=== PATIENT | female | born 1980 | race Caucasian/White ===

== ENCOUNTER 2022-04-03 11:27 | Emergency (ER) | payer MEDICAID ==
[~2022-04-03] VITALS: Ht 152.4 cm; Wt 64.0 kg
[2022-04-03 11:37] VITALS: BP 104/63
[2022-04-03] MEDS ORDERED: SODIUM CHLORIDE 0.9% 1,000 ML IV ONE (12:00)
[2022-04-03] MEDS ORDERED: ACETAMINOPHEN 325MG TABLET PO ONE (12:00)
[2022-04-03 12:16] LABS: BASOPHILS % 0.3 % (0.0-2.0); EOSINOPHILS % 0.8 % (0.0-5.0); HEMATOCRIT. 35.7 % (36.0-48.0); HEMOGLOBIN. 11.9 g/dL (12.0-16.0); LYMPHOCYTES % 13.4 % (20.0-50.0); MEAN CORPUSCULAR HEMOGLOBIN 25.7 pg (28.0-32.0); MEAN CORPUSCULAR VOLUME 77.2 fL (81.0-99.0); MEAN PLATELET VOLUME 8.6 fl (7.4-10.4); MONOCYTES % 8.3 % (2.0-8.0); NEUTROPHILS % 77.2 % (40.0-76.0); PLATELET 239 x1000/uL (130-400); RED BLOOD CELL COUNT 4.63 mill/uL (4.2-5.4); RED CELL DISTRIBUTION WIDTH 14.7 % (11.6-14.6)
[2022-04-03 12:24] LABS: CHLORIDE 105 mEq/L (98-107)
[2022-04-03 12:43] LABS: CLARITY URINE TURBID (CLEAR); COLOR URINE YELLOW (YELLOW); KETONES URINE NEGATIVE (NEGATIVE); LEUKOCYTE ESTERASE URINE 1+ (NEGATIVE); NITRITE URINE NEGATIVE (NEGATIVE); OCCULT BLOOD URINE 3+ (NEGATIVE); PH URINE 8.5 (4.5-8.0); PROTEIN URINE TRACE (NEGATIVE); SPECIFIC GRAVITY URINE 1.018 (1.005-1.030)
[2022-04-03 12:48] LABS: B-HCG QUANTITATIVE 21393 mIU/mL (<3)
[2022-04-03] MEDS ORDERED: NITR-87 MT (13:51)
== END 2022-04-03 14:23 | disposition home or self-care (01) ==
LOC: ER 11:47
DX: O20.0 Threatened abortion (principal); Z3A.16 16 weeks gestation of pregnancy
CPT/HCPCS: 36415; 76805; 80053; 81003; 84702; 85025; 86850; 86900; 86901; 96360; 99284; J7030

== ENCOUNTER 2022-07-26 00:47 | Inpatient (IN) | payer MEDICAID ==
[~2022-07-26] VITALS: Ht 152.4 cm; Wt 70.3 kg
[~2022-07-26 00:47] MED LIST: NITR-87 MT
[2022-07-26] MEDS ORDERED: MISOPROSTOL 100MCG TABLET VG SCH (01:15)
[2022-07-26] MEDS ORDERED: NALOXONE HCL 0.4 MG/ML 1ML VIAL IM PRN (01:15)
[2022-07-26] MEDS ORDERED: LIDOCAINE HCL 1% 10 MG/ML 10ML VIAL IJ SCH (01:15)
[2022-07-26] MEDS ORDERED: RHO(D) IMMUNE GLOBULIN 300 MCG/SYR IM ONE (01:15)
[2022-07-26] MEDS ORDERED: CARBOPROST TROMETHAMINE 250 MCG/ML AMPUL IM PRN (01:15)
[2022-07-26] MEDS ORDERED: OXYTOCIN 30 UNITS/500ML NS PMX 500 ML IV SCH ×2 (01:15→03:00)
[2022-07-26] MEDS ORDERED: METHYLERGONOVINE MALEATE 0.2 MG/ML IM PRN (01:15)
[2022-07-26] MEDS: LACTATED RINGERS 1,000 ML IV SCH ×2 (01:39→02:00)
[2022-07-26 01:51] LABS: BASOPHILS % 0.8 % (0.0-2.0); EOSINOPHILS % 1.7 % (0.0-5.0); HEMATOCRIT. 31.9 % (36.0-48.0); HEMOGLOBIN. 10.4 g/dL (12.0-16.0); MEAN CORPUSCULAR HEMOGLOBIN 22.8 pg (28.0-32.0); MEAN PLATELET VOLUME 8.6 fl (7.4-10.4); MONOCYTES % 9.8 % (2.0-8.0); NEUTROPHILS % 70.7 % (40.0-76.0); PLATELET 250 x1000/uL (130-400); RED BLOOD CELL COUNT 4.56 mill/uL (4.2-5.4); RED CELL DISTRIBUTION WIDTH 18.7 % (11.6-14.6)
[2022-07-26] MEDS ORDERED: MORPHINE SULFATE/PF 1MG/ML 10ML AMP ONE (01:56)
[2022-07-26] MEDS ORDERED: DEXAMETHASONE 4MG/ML 1ML VIAL ONE (01:57)
[2022-07-26] MEDS ORDERED: ONDANSETRON HCL 4MG/2ML INJ ONE (01:57)
[2022-07-26] MEDS ORDERED: OXYTOCIN 10 UNITS/ML 1ML ONE (01:59)
[2022-07-26] MEDS ORDERED: CEFAZOLIN SODIUM 1000MG/VIAL ONE (02:00)
[2022-07-26 02:04] LABS: CHLORIDE 103 mEq/L (98-107)
[2022-07-26 02:06] LABS: CLARITY URINE CLEAR (CLEAR); COLOR URINE YELLOW (YELLOW); KETONES URINE NEGATIVE (NEGATIVE); LEUKOCYTE ESTERASE URINE NEGATIVE (NEGATIVE); NITRITE URINE NEGATIVE (NEGATIVE); OCCULT BLOOD URINE 2+ (NEGATIVE); PH URINE 6.5 (4.5-8.0); PROTEIN URINE NEGATIVE (NEGATIVE); SPECIFIC GRAVITY URINE 1.014 (1.005-1.030); UROBILINOGEN URINE 0.2 E.U./dL (0.2-1.0)
[2022-07-26 02:14] LABS: PARTIAL THROMBOPLASTIN TIME 26.5 sec (23.4-31.0); PROTHROMBIN TIME 10.4 sec (9.6-11.0)
[2022-07-26] MEDS ORDERED: PROPOFOL 200MG/20ML VIAL IV ONE (02:27)
[2022-07-26 02:41] LABS: FIBRINOGEN < 685 mg/dL (200-400)
[2022-07-26] MEDS ORDERED: KETOROLAC 60MG/2ML VIAL IM ONE (02:42)
[2022-07-26 02:43] LABS: HEPATITIS B SURFACE ANTIGEN NEGATIVE
[2022-07-26] MEDS ORDERED: DIPHENHYDRAMINE 25MG CAPSULE PO PRN (03:00)
[2022-07-26] MEDS ORDERED: IBUPROFEN 400MG TABLET PO PRN (03:00)
[2022-07-26] MEDS ORDERED: BISACODYL 10MG SUPP PR PRN (03:00)
[2022-07-26] MEDS ORDERED: LANOLIN OINT 7GM TUBE TOP PRN (03:00)
[2022-07-26] MEDS ORDERED: ONDANSETRON HCL 4MG/2ML INJ IV PRN (03:00)
[2022-07-26] MEDS ORDERED: HEMORRHOIDAL SUPP PR PRN (03:00)
[2022-07-26] MEDS ORDERED: RHO(D) IMMUNE GLOBULIN 300 MCG/SYR IM PRN (03:00)
[2022-07-26] MEDS ORDERED: FENTANYL CITRATE/PF 50MCG/ML 2ML VIAL ONE (03:08)
[2022-07-26 03:27] LABS: PLATELET ESTIMATE NORMAL
[2022-07-26 04:13] LABS: *AMPHETAMINES SCREEN URINE NEGATIVE (NEGATIVE); *BARBITURATES SCREEN URINE NEGATIVE (NEGATIVE); *BENZODIAZEPINES SCREEN URINE NEGATIVE (NEGATIVE); *COCAINE SCREEN URINE NEGATIVE (NEGATIVE); CANNABINOID URINE SCREEN NEGATIVE (NEGATIVE); METHADONE URINE SCREEN NEGATIVE (NEGATIVE); OPIATES URINE SCREEN NEGATIVE (NEGATIVE); PHENCYCLIDINE URINE SCREEN NEGATIVE (NEGATIVE)
[2022-07-26 05:15] VITALS: BP 98/54
[2022-07-26 06:10] VITALS: BP 101/61
[2022-07-26] MEDS ORDERED: INFLUENZA VACCINE 05/PF 0.5 ML SYRINGE IM ONE (07:00)
[2022-07-26] MEDS ORDERED: TETANUS, DIPHTHERIA, PERTUSSIS VAC/PF 0.5ML (>10YR OLD) IM ONE (07:00)
[2022-07-26 08:00] VITALS: BP 103/63
[2022-07-26] MEDS: SIMETHICONE 80MG TABLET CHEW PO SCH ×4 (08:44→19:39)
[2022-07-26] MEDS: PRENATAL VIT/FE FUMARATE/FA TABLET PO SCH (08:44)
[2022-07-26] MEDS: MAGNESIUM/ALUMINUM HYDROXIDE/SIMETHICONE 30ML UDC PO SCH ×4 (08:44→19:39)
[2022-07-26] MEDS: ACETAMINOPHEN WITH CODEINE 300/30MG TABLET PO PRN ×2 (08:44→19:32)
[2022-07-26 16:00] VITALS: BP 98/61
[2022-07-26] MEDS: IBUPROFEN 800MG TABLET PO PRN ×2 (16:05→23:31)
[2022-07-26] MEDS: DOCUSATE SODIUM 100MG CAPSULE PO SCH (19:38)
[2022-07-26 20:00] VITALS: BP 95/50
[2022-07-27 04:00] VITALS: BP 107/56
[2022-07-27] MEDS: MAGNESIUM/ALUMINUM HYDROXIDE/SIMETHICONE 30ML UDC PO SCH ×4 (07:30→21:09)
[2022-07-27] MEDS: IBUPROFEN 800MG TABLET PO PRN ×3 (07:35→23:20)
[2022-07-27] MEDS: FERROUS SULFATE 325MG TABLET PO SCH ×3 (07:35→18:00)
[2022-07-27] MEDS: PRENATAL VIT/FE FUMARATE/FA TABLET PO SCH (07:35)
[2022-07-27 07:58] VITALS: BP 94/45
[2022-07-27] MEDS: SIMETHICONE 80MG TABLET CHEW PO SCH ×4 (08:00→21:10)
[2022-07-27 08:15] LABS: BASOPHILS % 0.6 % (0.0-2.0); EOSINOPHILS % 0.6 % (0.0-5.0); LYMPHOCYTES % 17.9 % (20.0-50.0); MEAN CORPUSCULAR HEMOGLOBIN 23.5 pg (28.0-32.0); MEAN CORPUSCULAR VOLUME 70.5 fL (81.0-99.0); MEAN PLATELET VOLUME 8.4 fl (7.4-10.4); MONOCYTES % 7.2 % (2.0-8.0); NEUTROPHILS % 73.7 % (40.0-76.0); PLATELET 193 x1000/uL (130-400); RED BLOOD CELL COUNT 2.78 mill/uL (4.2-5.4); RED CELL DISTRIBUTION WIDTH 18.6 % (11.6-14.6)
[2022-07-27 08:21] LABS: HEMOGLOBIN. 6.5 g/dL (12.0-16.0)
[2022-07-27 08:22] LABS: HEMATOCRIT. 19.6 % (36.0-48.0)
[2022-07-27 16:00] VITALS: BP 95/51
[2022-07-27] MEDS: ACETAMINOPHEN WITH CODEINE 300/30MG TABLET PO PRN (18:00)
[2022-07-27 20:00] VITALS: BP 99/58
[2022-07-27] MEDS: DOCUSATE SODIUM 100MG CAPSULE PO SCH (21:10)
[2022-07-28 03:30] VITALS: BP 90/55
[2022-07-28] MEDS: ACETAMINOPHEN WITH CODEINE 300/30MG TABLET PO PRN (03:35)
[2022-07-28 07:20] VITALS: BP 100/61
[2022-07-28 07:20] LABS: BASOPHILS % 0.6 % (0.0-2.0); EOSINOPHILS % 0.9 % (0.0-5.0); HEMATOCRIT. 21.4 % (36.0-48.0); HEMOGLOBIN. 7.1 g/dL (12.0-16.0); MEAN CORPUSCULAR HEMOGLOBIN 23.7 pg (28.0-32.0); MEAN CORPUSCULAR VOLUME 71.3 fL (81.0-99.0); MEAN PLATELET VOLUME 8.1 fl (7.4-10.4); MONOCYTES % 7.3 % (2.0-8.0); NEUTROPHILS % 76.2 % (40.0-76.0); PLATELET 225 x1000/uL (130-400); RED CELL DISTRIBUTION WIDTH 19.1 % (11.6-14.6)
[2022-07-28] MEDS: FERROUS SULFATE 325MG TABLET PO SCH ×3 (07:52→17:10)
[2022-07-28] MEDS: PRENATAL VIT/FE FUMARATE/FA TABLET PO SCH (07:52)
[2022-07-28] MEDS: IBUPROFEN 800MG TABLET PO PRN ×2 (07:52→16:03)
[2022-07-28] MEDS: SIMETHICONE 80MG TABLET CHEW PO SCH ×4 (07:53→20:54)
[2022-07-28] MEDS: MAGNESIUM/ALUMINUM HYDROXIDE/SIMETHICONE 30ML UDC PO SCH ×4 (07:53→20:55)
[2022-07-28 16:05] VITALS: BP 107/54
[2022-07-28] MEDS: DOCUSATE SODIUM 100MG CAPSULE PO SCH (20:55)
[2022-07-28 22:00] VITALS: BP 104/50
[2022-07-29] MEDS: IBUPROFEN 800MG TABLET PO PRN ×2 (03:04→11:12)
[2022-07-29] MEDS ORDERED: IBUP-2030 PO (04:19)
[2022-07-29] MEDS ORDERED: FERR-63 PO (04:19)
[2022-07-29 06:58] VITALS: BP 109/56
[2022-07-29 08:00] VITALS: BP 101/53
[2022-07-29 11:12] VITALS: BP 101/53
== END 2022-07-29 12:25 | disposition home or self-care (01) | DRG 539 ==
LOC: OBSVTOIN 00:47 → INTOOBSV 00:47 → 8 EST LDRP 00:47 → UNDOADMOB 00:47 → 8 EST LDRP 05:26 → 8EST 05:26
PROVIDERS: ADMIT Obstetrics & Gynecology; ATTEND Obstetrics & Gynecology
PROC: 10D00Z1 Extraction of Products of Conception, Low, Open Approach (ICD-10-PCS; principal; 2022-07-26)
PROC: 0UB70ZZ Excision of Bilateral Fallopian Tubes, Open Approach (ICD-10-PCS; 2022-07-26)
DX: O44.13 Complete placenta previa with hemorrhage, third trimester (principal); D62 Acute posthemorrhagic anemia; Z3A.33 33 weeks gestation of pregnancy; Z20.822 Contact with and (suspected) exposure to COVID-19; Z37.0 Single live birth; Z30.2 Encounter for sterilization; O90.81 Anemia of the puerperium
CPT/HCPCS: 36415; 80053; 80305; 81003; 85025; 85384; 86592; 86703; 86762; 86850; 86900; 86920; 87340; 87426; 88302; 88307; 90384; 90686; 90715; 99281; G0378; J0690; J1100; J1885; J2274; J2405; J2704; J3010; A4315; J2590